=== PATIENT | female | born 1960 | race Caucasian/White ===

== ENCOUNTER 2017-01-20 19:39 | Inpatient (IN) | payer OTHER ==
--- NOTE | ~2017-01-20 | CO ---
Unit #: [id number] #: [id number] Patient: IVAN PACHECO [id number] [address] [address] [id number] I MR#: [id number] NAME: IVAN PACHECO ROOM: 302 Age: 56 Sex: F Admission Date: 01/20/2017 : 1960 Attending Physician: David Chavez M.D. [facility] Consultation Date: 01/21/2017 CONSULTATION REPORT REASON FOR CONSULTATION Severe iron deficiency anemia. HISTORY OF PRESENT ILLNESS Miss Pacheco is a pleasant 56-year-old white female. Patient lives by herself. She is disabled due to "nerves." She has presented with a history of fatigue and respiratory symptoms and upon admission found to have acute influenza. Patient upon admission was found to have a hemoglobin of 5.2 with severely hyperchromic microcytic red cell indices. She apparently came to the urgent care center and subsequently found to have a low hemoglobin. She denied any fever, chills, or rigors, or any nausea, vomiting, diarrhea, or abdominal pain, and there is no history of overt GI bleed. She does have fatigue and upper respiratory tract symptoms. PAST MEDICAL HISTORY 1. Irritable bowel syndrome. 2. Radiation 20 years ago for cervical cancer. PAST SURGICAL HISTORY 1. Tubal ligation. 2. Cholecystectomy. SOCIAL HISTORY She does not smoke or drink alcohol. She used to smoke in the past and quit about 20 years ago. She does not drink alcohol. She lives at home by herself and is disabled. FAMILY HISTORY None of colon or pancreatic cancer or liver disease. ALLERGIES No known drug allergies. MEDICATIONS She does not take any medications at the present times. REVIEW OF SYSTEMS A detailed review of organ systems does not reveal any recent weight loss. No history of fever, chills, or rigors, no history of headaches, seizures, chest pain, or syncope. There is a history of cough and respiratory symptoms. There is a history of fatigue. No history of dysuria, hematuria, or pyuria, no history of hematemesis, melena, or hematochezia, and no history of seizures, skin rash, aphthous ulcers in the mouth, or Unit #: [id number] #: [id number] Patient: IVAN PACHECO reactive arthritis. PHYSICAL EXAMINATION GENERAL: She is alert, oriented, and appears uncomfortable because of fatigue. VITAL SIGNS: Stable with temperature of 98.4, pulse 78 per minute and regular, respiratory rate is 18, and blood pressure is 116/71. She weighs 246 pounds and appears obese. HEENT: She has moderate pallor, there being no icterus, lymphadenopathy, or peripheral edema. CARDIOVASCULAR: Examination revealed normal heart sounds. No murmurs. CHEST: Auscultation over the lungs revealed normal breath sounds and good air entry. ABDOMEN: Soft, obese, and nontender. Liver and spleen are not palpable and bowel sounds are normal. DIAGNOSTIC STUDIES LABORATORY: Hemoglobin of 4.4 on admission, white count is 3.6, platelet count is 217,000, and MCV is 62. Patient has virtually no iron reserves with transferring saturation of 1, ferritin of 3, and iron of 7. Albumin is 3.4. LFTs are normal. BUN and creatinine are also normal. Her potassium on admission was 3. Serologies confirms acute influenza B virus infection. CLINICAL IMPRESSION Patient with acute influenza and severe iron deficiency anemia without any overt gastrointestinal bleed. The differential diagnoses include colorectal neoplasia, peptic ulcer disease, and nonsteroidal antiinflammatory drug usage which patient denies. An upper endoscopy is warranted and will be scheduled shortly. If the later is normal, a colonoscopy will be entertained in the next couple of days. Thank you for asking me to see this pleasant woman. I appreciate the consult. Dictated by... Beka Parks/frederick TD: 01/22/2017 15:12 JOB #: [id number] CONSULTATION REPORT Page 1 of 1 X Arron Cobian MD CONSULTATION REPORT
--- NOTE | ~2017-01-20 | ST ---
Unit #: [id number] #: [id number] Patient: IVAN PACHECO [id number] [address] [address] [id number] I MR#: [id number] NAME: IVAN PACHECO : 1960 SEX: F STUDY DATE/TIME: 01/24/2017 UNIT: C3A PCU ROOM: 302 STUDY DESCRIPTION: Stress test Attending Physician: Joesph Nash M.D. [facility] CARDIOLOGY REPORT EXAM Stress test. REASON FOR EXAM Pre-op clearance for colon surgery. SUMMARY Baseline EKG shows normal sinus rhythm, 60 beats per minute. Per protocol, 0.4 mg of Lexiscan was injected, followed by Cardiolite. During the test the patient did complain of shortness of breath. Denied any complaints of chest pain. There were no ST segment changes suggestive of ischemia. There was an isolated PVC noted during the infusion and some multifocal PVCs noted in the recovery period. The patient's resting blood pressure was 129/76 and pavithra to a maximum blood pressure of 144/87. The test was stopped secondary to protocol completion. IMPRESSION 1. Negative EKG portion of Lexiscan Cardiolite. 2. No ST segment changes suggestive of ischemia. 3. Patient denied any complaints of chest pain; however, did report shortness of breath during the infusion. This resolved in the recovery period. 4. There was an isolated PVC and some multifocal PVCs noted in the recovery period but no sustained arrhythmias. 5. Please correlate with nuclear imaging. 1. Dictated by... Julissa Woo A.P.R.N. for Korin Starkey M.D. LMW/db TD: 01/24/2017 13:20 JOB #: [id number] Unit #: [id number] #: [id number] Patient: IVAN PACHECO CARDIOLOGY REPORT Page 1 of 1 X Julissa Woo APRN CARDIOLOGY REPORT
--- NOTE | ~2017-01-20 | OR ---
Unit #: [id number] #: [id number] Patient: IVAN PACHECO [id number] [id number] [facility]. [place], [place] [address] [id number] I MR#: [id number] NAME: IVAN PACHECO. ROOM: 302 Date of Procedure: 01/23/2017 Admission Date: 01/20/2017 Surgeon: Arron Cobian M.D. : 1960 Attending Physician: Joesph Nash M.D. OPERATIVE REPORT JOB NOTE: CC: DR. DAVID KNOWLES. ATTENDING PHYSICIAN Dr. David Knowles. PRIMARY CARE PHYSICIAN [facility]. PREOPERATIVE DIAGNOSES Severe iron-deficiency anemia. The patient has presented with hemoglobin of 4.4. An upper endoscopy done recently was unremarkable and a colonoscopy to be done today. PROCEDURES PERFORMED Colonoscopy and biopsies, colonoscopy with polypectomy, colonoscopy with submucosal injection, and colonoscopy with ablation. POSTOPERATIVE DIAGNOSES 1. The patient had a severe sigmoid diverticulosis with a tight stricture, which was negotiated very carefully. 2. A proximal ascending colon cancer that was exophytic, friable ulcerated mass about 4 cm above the ileocecal valve, which was nonobstructing and occupying 3/4 of the circumference of colon. The mass was biopsied and the surrounding proximal mucosa and distal mucosa was tattooed using Heidi ink. 3. A large sessile adenoma more than 6 cm in size in the proximal transverse colon. This was removed piecemeal after submucosal injection with methylcellulose and methylene blue. Partial resection was possible using piecemeal polypectomy. The surrounding residual tissue was then ablated using argon plasma coagulation therapy. Excellent hemostasis was achieved. Some of the removed polyp fragments could not be retrieved due to very dysfunctional retrieval net. RECOMMENDATIONS 1. The patient will need right extended hemicolectomy and a surgical consult is in order. 2. We will obtain CEA level, CBC, CMP in a.m. Transfuse one unit of packed cells today. Obtain CT scan of the abdomen and pelvis with oral and IV contrast today. The patient will stay on clear liquid diet. We will also strain all stool samples for 12 hours for polyp tissues or pieces, which will be sent to the path for histopathology. In view of the fact that the patient has proximal transverse colon largest lesion, it Unit #: [id number] #: [id number] Patient: IVAN PACHECO will be preferable to do an extended right hemicolectomy. SEDATION USED MAC. DESCRIPTION OF PROCEDURE Following detailed explanation of potential risks and complications of a colonoscopy, namely perforation, bleeding, and complication related to sedation, the patient was brought to GI lab and laid in the left lateral decubitus position. A digital rectal examination was performed, which was normal. Lubricated tip of the Olympus video colonoscope was inserted through the anus and advanced under direct vision. The scope was advanced past rectosigmoid into descending colon. The patient had tight sigmoid diverticular stricture, which was navigated very carefully and required a lot of maneuverability. Once the scope was advanced in the descending colon, insertion was easier. The scope tip was then navigated all the way up to cecum with visualization of the ileocecal valve and the appendiceal orifice. Preparation was excellent with good visualization and photodocumentation was obtained. Successive segments of the colonic mucosa were examined upon withdrawal. A large proximal ascending colon mass was seen about 4 cm above the ileocecal valve, which was nonobstructing occupying 3/4 of the circumference of the colon. It had a classic appearance of cancer with the exophytic ulcerated mass. Extensive biopsies were obtained from the mass. The mucosa immediate proximal and distally was then tattooed using Heidi ink and a sclerotherapy needle. In addition, a large sessile adenoma about 6 cm in size was removed piecemeal from the proximal transverse colon. Partial resection was possible. The polyp was raised by injecting with methylcellulose and methylene blue, and the residual polyp tissue was then ablated with argon plasma coagulation therapy. Some of the polyp fragments could not be collected after resection due to a dysfunctional equipment of Leahy snare. The scope was then withdrawn and the patient returned to the recovery area. She tolerated the procedure without any postprocedure complications. Dictated by... Beka Parks TD: 01/24/2017 00:14 JOB #: [id number] CC: [facility] OPERATIVE REPORT Page 1 of 1 X Arron Cobian MD PROCEDURE OPERATIVE NOTE
--- NOTE | ~2017-01-20 | CO ---
Unit #: [id number] #: [id number] Patient: IVAN PACHECO [id number] [address] [place], [place] [address] [id number] I MR#: [id number] NAME: IVAN PACHECO. ROOM: 302 Age: 56 Sex: F Admission Date: 01/20/2017 : 1960 Attending Physician: Joesph Nash M.D. Primary Care Physician: [facility] Consultation Date: 01/24/2017 CONSULTATION REPORT BRIEF SUMMARY The patient is a 56-year-old white female, who was admitted through the emergency room with severe anemia. She had been feeling very weak and tired lately and just generally ill and was seen in the clinic and her hemoglobin was down the range of 4.5 g. She denies any rectal bleeding or melena, but has had some weight loss over the past 3 months, according to her maybe 15 pounds to 20 pounds. She was admitted and transfused up and worked up by Dr. Cobian and had a colonoscopy yesterday that revealed 3 separate abnormalities, one was tight stricture probably chronic diverticulitis of the sigmoid colon, number 2 was a large polyp greater than 5 cm in the proximal transverse colon and cancer of the right colon just distal to the ileocecal valve. Biopsies were taken from these areas. The polyp apparently was taken out of the transverse colon piecemeal and the area tattooed as well as the right colon lesion. The patient denies any past history for colon cancer. She also denies any family history of colon cancer. PAST MEDICAL HISTORY The patient has had a known history for cervical cancer with radiation approximately 20 years ago. She has also had a known history for irritable bowel syndrome. She has had a previous cholecystectomy and tubal ligation surgery stauffer. SOCIAL HISTORY The patient has been a smoker in the past, but quit apparently 20 years ago. FAMILY HISTORY Remarkable and the fact there is no history for colon cancer. MEDICATIONS She states that she takes no home medications. ALLERGIES No allergies. TRANSFUSIONS None in the past. IMMUNIZATIONS Up-to-date. REVIEW OF SYSTEMS Twelve system review has been performed, which is not remarkable except Unit #: [id number] #: [id number] Patient: PACHECO,IVAN L for that noted in the present illness. PHYSICAL EXAMINATION VITAL SIGNS: The patient is afebrile. Vital signs are normal. HEENT: Not remarkable. NECK: Supple. CHEST: There is equal bilateral expansion with bilateral equal breath sounds. LUNGS: Clear bilaterally. HEART: Regular rhythm without murmurs or gallops. There is no evidence of cardiomegaly clinically. ABDOMEN: Soft, nontender, nondistended without mass or organomegaly. There is no evidence of any ascites or hernias. There is no guarding or rebound. Active bowel sounds are present. EXTREMITIES: Full range of motion without limitation. There is no evidence of peripheral edema. BACK: There is no CVA tenderness. NEUROLOGIC: Grossly intact. DIAGNOSTIC STUDIES LABORATORY RESULTS: Potassium was 3.1 yesterday, morning labs pending. Her current hemoglobin yesterday was 7.7, after being transfused, platelets of 180,000; white blood cell count 4700. This morning's CBC is pending. IMPRESSION The patient has colon cancer of the right colon with a large possibly premalignant polyp of the transverse colon and high-grade stricture of the sigmoid. Also on CT, she was noted to have cardiomegaly and some calcifications of her coronaries indicating cardiac disease, which suggests at this time prior to setting her up for subtotal colectomy. The patient needs cardiac clearance on CT as well. She had a small amount of free air that could possibly be related to her biopsies or the stricture. I feel the patient likely will need a subtotal colectomy. Dictated by... Gwyn Ochoa Jr., M.D. EYAL/aixa TD: 01/24/2017 07:23 JOB #: [id number] CONSULTATION REPORT Page 1 of 1 X Gwyn Ochoa MD X CONSULTATION REPORT
--- NOTE | ~2017-01-20 | XA166 ---
[facility] A Service of [facility] RADIOLOGY TEXT RESULTS PATIENT: IVAN PACHECO LOCATION: C3A - : 56 UNIT #: [id number] AGE: [address]: Joesph Nash MD SEX: F ORDER DR: [id number] [facility] [address] [facility] [place], [place] [address] [id number] I MR#: [id number] Acc #: [id number] NAME: IVAN PACHECO. : 1960 SEX: F STUDY DATE/TIME: 01/24/2017 11:19 UNIT: C3A U ROOM: [facility] STUDY DESCRIPTION: XA PICC Line Placement WO Port Attending Physician: Joesph Nash M.D. Ordering Physician: Joesph Nash M.D. Primary Care Physician: [facility] IMAGING REPORT This report is preliminary unless electronic signature is present EXAM Left-sided PICC line placement under ultrasound and fluoroscopy. HISTORY No venous access. PRE-PROCEDURE The procedure was explained to the patient and/or patient underwriting service representative including risks, benefits, potential complications and potential for alternative forms of treatment. Informed consent was obtained, and prior to initiating the procedure a formal timeout procedure was performed. PROCEDURE Using full standard sterile barrier technique, including caps, gowns, gloves, masks, as well as sterile skin preparation and standard sterile draping, the left arm was prepped and draped in the usual fashion, and real-time sterile ultrasound guidance was used to localize an arm vein and to confirm vessel patency. A hard copy ultrasound image was recorded. After local anesthesia with 1% Xylocaine, the basilic vein was punctured using real-time sterile ultrasound guidance, and an 0.018 guidewire was advanced into the superior vena cava, using fluoroscopic guidance. A 5-Ecuadorean dual-lumen PICC was then measured to 45 cm and deployed with the tip positioned in the cavoatrial junction. The position of the line was documented with a radiographic image. The line was secured in place with an adhesive dressing and an antibiotic patch was applied. Total fluoro time was 0.4 minutes. IMPRESSION Successful placement of a 5-Ecuadorean dual-lumen PowerPICC via the left arm under ultrasound and fluoroscopic guidance. The tip of the PICC is in good position in the cavoatrial junction. [facility] A Service of [facility] RADIOLOGY TEXT RESULTS PATIENT: IVAN PACHECO LOCATION: A 302-01 : 56 UNIT #: [id number] AGE: [address]: Joesph Nash MD SEX: F ORDER DR: Dictated by... Nav Miles M.D. THIS IS AN ELECTRONICALLY VERIFIED REPORT Nav Miles M.D. at 01/26/2017 2:20 PM TAMMY/jenae TD: 01/25/2017 00:05 JOB #: [id number] MEDICAL IMAGING REPORT Page 1 of 1 COPY
--- NOTE | ~2017-01-20 | OR ---
Unit #: [id number] #: [id number] Patient: IVAN PACHECO [id number] [address] [address] [id number] I MR#: [id number] NAME: IVAN PACHECO. ROOM: 302 Date of Procedure: 01/21/2017 Admission Date: 01/20/2017 Surgeon: Arron Cobian M.D. : 1960 Attending Physician: Joesph Nash M.D. Primary Care Physician: [facility] OPERATIVE REPORT PRIMARY CARE PHYSICIAN [facility]. PREOPERATIVE DIAGNOSIS The patient presented with severe iron deficiency anemia with hemoglobin of 5 and virtually no iron reserves. PROCEDURE PERFORMED Upper gastrointestinal endoscopy. POSTOPERATIVE DIAGNOSIS Incidental distal esophageal nonobstructing wide open Schatzki ring, otherwise examination normal up to third part of duodenum. RECOMMENDATIONS The patient will be given intravenous iron infusion for the next couple of days. Also we will schedule colonoscopy for Monday. In the meantime, she is getting packed cell transfusions. SEDATION USED Procedural sedation. DESCRIPTION OF PROCEDURE Following detailed explanation of the potential risks and complications of an upper endoscopy, namely perforation, bleeding, complication related to sedation, the patient was brought to GI lab and laid in the left lateral decubitus position. Lubricated tip of the Olympus video upper endoscope was passed through the bite block into the proximal esophagus under direct vision. The entire esophageal mucosa was examined and the patient was noted to have benign distal esophageal mucosal ring. This was wide open and nonobstructing. The scope was then advanced into the gastric cavity and the latter was insufflated. Mucosa of the fundus, body, and antrum examined and appeared unremarkable. Pylorus was intubated with visualization of normal duodenal bulb and second and third part of the duodenum. Upon withdrawal and retroflexion, incisura, cardia, and greater curve examined and no additional findings noted. The scope was then withdrawn in the distal esophagus. The entire esophageal mucosa was examined all the way up to pharynx. No additional findings noted. The patient tolerated the procedure without any postprocedure complications. Dictated by... Unit #: [id number] #: [id number] Patient: IVAN PACHECO Beka Parks/aixa TD: 01/22/2017 01:16 JOB #: [id number] CC: [facility] David Chavez M.D. OPERATIVE REPORT Page 1 of 1 X Arron Cobian MD PROCEDURE OPERATIVE NOTE
--- NOTE | ~2017-01-20 | HP ---
Unit #: [id number] #: [id number] Patient: IVAN PACHECO [id number] [address] [place], [place] [address] [id number] I MR#: [id number] NAME: IVAN PACHECO. ROOM: 302 Age: 56 Sex: F Admission Date: 01/20/2017 : 1960 Attending Physician: Diana Blunt M.D. [facility] HISTORY AND PHYSICAL CHIEF COMPLAINT Low blood count. Hemoglobin 5.2. Fatigue. HISTORY OF PRESENT ILLNESS This is a 56-year-old female who has a past medical history significant for history of cervical cancer, status post radiation 20 years ago, irritable bowel syndrome, not seeing any primary doctor for a year. She said she went to the Urgent Care today, having some cough, fatigue, dyspnea for the last couple of weeks. They did blood work and found her hemoglobin to be 5.2 and she was called to come to the emergency room. She denies chest pain. She denies nausea and vomiting, diarrhea, blood in the stool, abdominal pain. She denies fever, chills. She denies any vaginal bleeding. Denies any other complaint. PAST MEDICAL HISTORY 1. History of cervical cancer, status post radiation 20 years ago. 2. History of irritable bowel syndrome. PAST SURGICAL HISTORY 1. Cholecystectomy. 2. Tubal ligation. SOCIAL HISTORY She smoked a half pack daily for 10 years, but she quit 20 years ago. She denies alcohol. She denies any other illicit drug use. FAMILY HISTORY She denies any history of colon cancer, any other significant pertinent history to the case. ALLERGIES No known drug allergies. HOME MEDICATIONS She does not take any medication at home. REVIEW OF SYSTEMS All review of systems was negative except for that in history of present illness. PHYSICAL EXAMINATION GENERAL: Middle-aged female lying in the bed comfortably, currently not in any distress. She is alert, awake, oriented times three. VITALS: Temperature 100.1, heart rate 105, respiratory rate 18, blood Unit #: [id number] #: [id number] Patient: IVAN PACHECO pressure 146/56. HEENT: Pupils equal and reactive to light and accommodation. Head is normocephalic, atraumatic. Conjunctivae pale. No icterus. Head is normal. NECK: Supple. No jugular venous distension. No thyromegaly. LUNGS: Clear to auscultation. No rhonchi. No wheezing. HEART: S1 and S2. Regular rate and rhythm. No murmur. No gallop. ABDOMEN: Soft, nontender and nondistended. Bowel sounds positive. No guarding. No rigidity. SKIN: No rash. Warm and dry. EXTREMITIES: Inspection normal. No cyanosis, clubbing or edema. NEUROLOGIC: No focal neurologic deficits. She is alert and oriented times four. Cranial nerves II through XII intact. Power 5/5 both side. PSYCHIATRIC: Normal mood and affect. DIAGNOSTIC STUDIES IMAGING: Chest x-ray normal. LABORATORY: Sodium 134, potassium 3, chloride 102, glucose 167, BUN 12, creatinine 1. White blood cell count 3.6, RBC 2.87, hemoglobin 4.4, hematocrit 16.1, platelets 250. (1) drops present in the peripheral smear. INR 1.1. ASSESSMENT/PLAN 1. Severe symptomatic anemia. Will admit the patient. Will type and cross and transfuse two units. Ask GI and hematology to evaluate. Iron studies already ordered in the emergency room, which are being sent. Will add B12 and folic acid level in the morning. 2. Hypokalemia. Replace. Check magnesium level. 3. Fever. Low-grade fever. Chest x-ray negative. I will get urine for urinalysis. 4. Irritable bowel syndrome. 5. History of cervical, status post radiation 20 years ago. 6. DVT prophylaxis. Will place the patient on SCDs. Dictated by Beka Hutchinson TD: 01/21/2017 06:13 JOB #: [id number] HISTORY AND PHYSICAL Page 1 of 1 X X HISTORY AND PHYSICAL
--- NOTE | ~2017-01-20 | TH ---
Unit #: [id number] #: [id number] Patient: IVAN PACHECO [id number] [address] [address] [id number] I MR#: [id number] NAME: IVAN PACHECO. : 1960 SEX: F STUDY DATE/TIME: 01/25/2017 UNIT: C3A PCU ROOM: 302 STUDY DESCRIPTION: Lexiscan stress test - Nuclear Attending Physician: Joesph Nash M.D. [facility] CARDIOLOGY REPORT PROCEDURE PERFORMED Lexiscan Cardiolite stress test - Nuclear portion. PROCEDURE Using technetium 99m-labeled Cardiolite, rest and stress SPECT images were obtained. Multiple SPECT images were obtained in various views, including horizontal and vertical long axis and short axis views of the left ventricle. Images were obtained by gated SPECT method. The patient was administered 29.9 mCi of Cardiolite after Lexiscan infusion was completed. The stress images show a small area of mildly to moderately decreased tracer uptake activity involving the anteroapical wall. The rest images also show a small area of mildly decreased tracer uptake activity anteroapically. Comparing the rest and stress images, there is a small area of predominantly fixed defect seen anteroapically, most likely consistent with soft tissue artifact. The left ventricular ejection fraction is calculated to be 66%. There is no focal wall motion abnormality seen. There is no obvious stress-induced ischemia noted. CONCLUSION 1. No obvious stress-induced ischemia noted. 2. There is a small area of predominantly fixed defect seen anteroapically, most likely consistent with soft tissue artifact. 3. The left ventricular ejection fraction is calculated to be 66%. 4. There is no focal wall motion abnormality seen. 5. Technically limited study due to the patient's body habitus. Clinical correlation is requested. Dictated by.Beka Lama TD: 01/25/2017 08:56 JOB #: [id number] Unit #: [id number] #: [id number] Patient: IVAN PACHECO CARDIOLOGY REPORT Page 1 of 1 X Korin Starkey MD <ELECTRONICALLY SIGNED> 05/06/17 [facility] CARDIOLOGY REPORT
--- NOTE | ~2017-01-20 | HP ---
Unit #: [id number] #: [id number] Patient: IVAN PACHECO [id number] [address] [address] [id number] I MR#: [id number] NAME: IVAN PACHECO. ROOM: 302 Age: 56 Sex: F Admission Date: 01/20/2017 : 1960 Attending Physician: Joesph Nash M.D. Primary Care Physician: [facility]. HISTORY AND PHYSICAL REASON FOR EVALUATION Anemia. HISTORY OF PRESENT ILLNESS The patient is a 56-year-old lady who came in with very symptomatic microcytic anemia. Hemoglobin was 5.2. She is currently being transfused. She states that she knew that she was anemic, but that was 40 years ago when she had her periods and . She was told that she was anemic. Subsequently she has never had any anemia come up until now. She does have a history of cervical cancer, status post radiation therapy, but that is also about 20 years ago. There are no records available. The only other medical problem is irritable bowel syndrome. SOCIAL HISTORY Smoked for about 10 years. She states she quit 20 years ago. No alcohol usage. FAMILY HISTORY Negative for any cluster of cancers or colonic abnormalities or anemias. ALLERGIES No known drug allergies. HOME MEDICATIONS None. REVIEW OF SYSTEMS She states that she has been healthy all of her life. Eight or 10 systems were within normal limits. PHYSICAL EXAMINATION GENERAL: Moderately pale, central obesity. LYMPH: No palpable nodes. LUNGS: Clear. ABDOMEN: No organomegaly. PELVIC: Not done. DIAGNOSTIC STUDIES LABORATORY: Glucose 167, BUN 12, creatinine 1, sodium 134, potassium 3.7, chloride 102, CO2 21, calcium 8, hemoglobin upon admission was 4.4, hematocrit 16.1, MCV 55.9, white blood cell count 3600, platelets 250,000. B12 194, folate 18.7, iron 7, TIBC 521, saturation 1, ferritin 3. ASSESSMENT Unit #: [id number] #: [id number] Patient: IVAN PACHECO This 56-year-old lady with no obvious blood loss has a significant microcytic anemia with a very low hemoglobin and low B12. PLAN Initially we will go ahead and replenish the iron. Upper and lower endoscopies. Follow up to make sure that she recuperates. She may require further iron therapy. If the microcytic RBCs persist, we may need to do a hemoglobin electrophoresis so that we do not miss beta thalassemia minor, which is unlikely but still needs to be ruled out if microcytic RBCs persist. Dictated by Micah Freeman M.D. SPS/gz TD: 01/22/2017 12:17 JOB #: [id number] HISTORY AND PHYSICAL Page 1 of 1 X Micah Freeman MD X HISTORY AND PHYSICAL
--- NOTE | ~2017-01-20 | EKG ---
PATIENT: IVAN PACHECO UNIT #: [id number] Ventricular Rate: 57 BPM Atrial Rate: 57 BPM P-R Interval: 148 ms QRS Duration: 94 ms Q-T Interval: 484 ms QTC Calculation(Bezet): 471 ms P [place]: 45 degrees Calculated R [place]: 6 degrees Calculated T [place]: 0 degrees Diagnosis Line: Sinus bradycardia Diagnosis Line: Possible Inferior infarct , age undetermined Diagnosis Line: Abnormal ECG Diagnosis Line: No previous ECGs available Diagnosis Line: Confirmed by APRIL SIFUENTES MD ([id number]) on 01/24/2017 Diagnosis Line: 10:21:01 PM INTERPRETING MD: BEAR CARTER
--- NOTE | ~2017-01-20 | CT2 ---
[facility] A Service of [facility] RADIOLOGY TEXT RESULTS PATIENT: IVAN PACHECO LOCATION: [facility] : 56 UNIT #: [id number] AGE: [address]: Joesph Nash MD SEX: F ORDER DR: [id number] [place] [id number] [facility]. [place], [place] [address] [id number] I MR#: [id number] Acc #: [id number] NAME: IVAN PACHECO : 1960 SEX: F STUDY DATE/TIME: 01/23/2017 20:24 UNIT: [address] ROOM: [facility] STUDY DESCRIPTION: CT Abd and Pelv W Cont Attending Physician: Joesph Nash M.D. Ordering Physician: Arron Cobian M.D. Primary Care Physician: [facility] IMAGING REPORT This report is preliminary unless electronic signature is present EXAM CT abdomen and pelvis with contrast. HISTORY Anemia, sent for evaluation of low hemoglobin, complains of lower abdominal pain. TECHNIQUE Axial images performed through the abdomen and pelvis following IV contrast. Multiplanar reconstructed images reviewed at a workstation. This CT exam was performed with one or more of the following radiation dose reduction techniques: automatic exposure control, adjustment of mA and/or kV according to patient size, and iterative reconstruction. FINDINGS ABDOMEN: Lung bases unremarkable except for right lower lobe granuloma. Cardiomegaly. The liver suggests fatty infiltration. There is splenomegaly. Gallbladder surgically absent. Pancreas, kidneys and adrenal glands are unremarkable. There is a small amount of free air overlying the anterior right liver and along the hemidiaphragm. Etiology unclear. The stomach demonstrates some food debris. The small bowel is unremarkable. There are scattered colonic diverticular changes but no evidence of acute diverticulitis. Retroperitoneum unremarkable. PELVIS: The uterus is surgically absent. Bladder is contracted. There is a trace amount of free fluid in the pelvis. Osseous structures and soft tissues unremarkable. IMPRESSION [facility] A Service of [facility] RADIOLOGY TEXT RESULTS PATIENT: IVAN PACHECO LOCATION: [facility] : 56 UNIT #: [id number] AGE: [address]: Joesph Nash MD SEX: F ORDER DR: 1. There is a very small amount of free intraperitoneal air best seen overlying the anterior aspect of the liver and along the dome of the liver. This appears to represent a new finding when compared to the patient's recent chest CT of 01/20/2017. Exact etiology unclear. 2. There are a few scattered sigmoid diverticula as well as a trace amount of free fluid the pelvis, nonspecific. Changes could reflect very early sigmoid diverticulitis but is not particularly convincing. 3. Additional history was provided that the patient had a recent colonoscopy today. The presence of small amount of free intraperitoneal air would be concerning for a small perforation. These findings were called to the nurse on the floor and they are going to notify Dr. Cobian of the results of this study. Dictated by... Mona Ta M.D. THIS IS AN ELECTRONICALLY VERIFIED REPORT Mona Ta M.D. at 01/24/2017 11:00 PM ANDRES/jenae TD: 01/24/2017 00:25 JOB #: [id number] MEDICAL IMAGING REPORT Page 1 of 1 COPY
--- NOTE | ~2017-01-20 | US140 ---
[facility] A Service of [facility] RADIOLOGY TEXT RESULTS PATIENT: IVAN PACHECO LOCATION: [facility] 302- : 56 UNIT #: [id number] AGE: [address]: Joesph Nash MD SEX: F ORDER DR: [id number] [facility] [address] [facility]. [place], [place] [address] [id number] I MR#: [id number] Acc #: [id number] NAME: IVAN PACHECO : 1960 SEX: F STUDY DATE/TIME: 01/24/2017 14:10 UNIT: [address] ROOM: [facility] STUDY DESCRIPTION: US UE Veins Unilat or Ltd Stdy Attending Physician: Joesph Nash M.D. Ordering Physician: Joesph Nash M.D. Primary Care [facility] MED[facility] IMAGING REPORT This report is preliminary unless electronic signature is present EXAM Right upper extremity venous Doppler, 01/24/2017 REASON FOR EXAM Upper extremity swelling. FINDINGS The right internal jugular vein, subclavian vein, axillary vein, and brachial vein is widely patent and compressible. There is phasic appearing flow with respiration and augmentation. The right cephalic vein appears patent in the proximal arm but appears to be thrombosed and noncompressible in the mid arm. The basilic vein appears widely patent and compressible throughout. At the antecubital fossa, there is a structure either consistent with a venous thrombosis or a hematoma measuring 2.6 x 1.3 cm in diameter. IMPRESSION No evidence of right upper extremity deep vein thrombosis but positive superficial venous thrombosis of the mid cephalic vein. Dictated by... Barby Henderson M.D. THIS IS AN ELECTRONICALLY VERIFIED REPORT Barby Henderson M.D. at 01/25/2017 3:49 PM FPN/psc TD: 01/25/2017 04:03 JOB #: [id number] MEDICAL IMAGING REPORT [facility] A Service of [facility] RADIOLOGY TEXT RESULTS PATIENT: IVAN PACHECO LOCATION: [facility] 302-01 : 56 UNIT #: [id number] AGE: [address]: Joesph Nash MD SEX: F ORDER DR: Page 1 of 1 COPY
--- NOTE | ~2017-01-20 | BMI ---
[facility] Nutrition Therapy DATE: 01/21/17 Patient: IVAN PACHECO Physician: GORGE Address: [address] [place] [address] Room/Bed: [address] [place] [address], Zip: [place] [address] Admit Date: 01/20/17 Date of : 56 Height: 5 5.5 Weight: 246 111.8 HIGH BMI NOTE: DX: 56 Y.O. FEMALE ADMITTED FOR ANEMIA ANTHROPOMETRICS: 5'5.5", WT: 246# (112 KG), BMI: 40.3 DIET: NPO INTERVENTION: 1. NPO RECOMMENDATIONS: 1. ONCE MEDICALLY FEASIBLE, ADVANCE DIET INDICATED TO CC+HH TO PROMOTE GRADUAL WEIGHT LOSS TOWARDS HEALTHY BMI (19.0-25.0) OR +/-10%IBW RD WILL F/U PER PROTOCOL Respectfully, PRIMO LONG MS, RD, LD Food and Nutritional Services [facility] cc: client file
--- NOTE | ~2017-01-20 | CR72 ---
[facility] A Service of [facility] RADIOLOGY TEXT RESULTS PATIENT: IVAN PACHECO LOCATION: [facility] 302- : 56 UNIT #: [id number] AGE: [address]: Diana Blunt MD SEX: F ORDER DR: [id number] [facility] [address] [place], [place] [address] [id number] I MR#: [id number] Acc #: [id number] NAME: IVAN PACHECO : 1960 SEX: F STUDY DATE/TIME: 01/20/2017 19:50 UNIT: [address] ROOM: [facility] STUDY DESCRIPTION: CR Chest Single View Portable Attending Physician: David Chavez M.D. Ordering Physician: Musa Hernandez M.D. [facility] MED[facility] IMAGING REPORT This report is preliminary unless electronic signature is present EXAM Portable chest HISTORY Cough and congestion and fever for 2 weeks. FINDINGS Borderline cardiac enlargement. Pulmonary vascularity is normal. Small calcified right hilar nodes and small calcified granulomas in the right midlung. No infiltrates or effusions. IMPRESSION No acute findings. Borderline cardiac enlargement. Dictated by... Zeyad Solares M.D. THIS IS AN ELECTRONICALLY VERIFIED REPORT Zeyad Solares M.D. at 01/21/2017 11:19 PM DFL/rosemary TD: 01/21/2017 04:03 JOB #: [id number] MEDICAL IMAGING REPORT Page 1 of 1 COPY
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
--- NOTE | ~2017-01-20 | CT57 ---
[facility] A Service of [facility] RADIOLOGY TEXT RESULTS PATIENT: IVAN PACHECO LOCATION: [facility] : 56 UNIT #: [id number] AGE: [address]: Joesph Nash MD SEX: F ORDER DR: [id number] [facility] [address] [facility]. [place], [place] [address] [id number] I MR#: [id number] Acc #: [id number] NAME: IVAN PACHECO : 1960 SEX: F STUDY DATE/TIME: 01/20/2017 21:34 UNIT: [address] ROOM: [facility] STUDY DESCRIPTION: CT Chest Wo Cont Attending Physician: Diana Blunt M.D. Ordering Physician: Axel Haywood M.D. Primary Care Physician: [facility] MEDICAL IMAGING REPORT This report is preliminary unless electronic signature is present EXAM CT of the chest without contrast. INDICATIONS Fever, low hemoglobin. Cough, congestion for [address] of the chest was performed without contrast. Coronal and sagittal reformatted images were obtained. This CT exam was performed with one or more of the following radiation dose reduction techniques: automatic exposure control, adjustment of mA and/or kV according to patient size, and iterative reconstruction. COMPARISON No comparisons. FINDINGS There is no lymphadenopathy or pleural effusion. Calcified mediastinal and hilar lymph nodes. Coronary artery calcifications. There are calcified granulomas within the lungs. There is minimal dependent atelectasis or scarring. No acute infiltrate. No suspicious pulmonary nodule. Limited imaging of the upper abdomen demonstrates a cholecystectomy. Splenomegaly. Bone windows are unremarkable. IMPRESSION No acute findings in the chest. There is no airspace infiltrate or suspicious pulmonary nodule. There is no lymphadenopathy. There are scattered granulomatous calcifications. Dictated by... Solo Ta M.D. THIS IS AN ELECTRONICALLY VERIFIED REPORT [facility] A Service of [facility] RADIOLOGY TEXT RESULTS PATIENT: IVAN PACHECO LOCATION: [facility] : 56 UNIT #: [id number] AGE: [address]: Joesph Nash MD SEX: F ORDER DR: Solo Ta M.D. at 01/23/2017 8:02 AM ALECIA/katie TD: 01/21/2017 06:28 JOB #: [id number] MEDICAL IMAGING REPORT Page 1 of 1 COPY
--- NOTE | ~2017-01-20 | OR ---
Unit #: [id number] #: [id number] Patient: IVAN PACHECO [id number] [address] [place], [place] [address] [id number] I MR#: [id number] NAME: IVAN PACHECO. ROOM: 302 Date of Procedure: 01/25/2017 Admission Date: 01/20/2017 Surgeon: Harry Mason M.D. : 1960 Attending Physician: Joesph Nash M.D. Primary Care Physician: [facility] OPERATIVE REPORT PREOPERATIVE DIAGNOSES Ascending colon malignancy and proximal to mid transverse colon polyp. POSTOPERATIVE DIAGNOSES Ascending colon malignancy and proximal to mid transverse colon polyp. PROCEDURES PERFORMED Exploratory laparotomy and extended right hemicolectomy. CONCERT SINGER Stanton Conti M.D. ANESTHESIA General endotracheal anesthesia. ESTIMATED BLOOD LOSS 100 mL. INDICATIONS FOR PROCEDURE A 56-year-old female underwent endoscopic evaluation for anemia by Gastroenterology. She was found to have a mass in the ascending colon consistent with malignancy. In the proximal to mid transverse colon, there was a second large polyp that was taken out piecemeal, but the sanitary landfill supervisor felt that there was residual polyp left and could not completely rule out cell malignancy and suggested extended resection to include the polyp. Of note, in the sigmoid colon, he dictated that there was a strictured area, but on personal communication, I was asking him about that to see if it needed to be resected and he felt was more due to externally adhesions where she had an area of diverticular disease and felt that that the colon was more in a very tight turn that made passage through that area difficult more than a true cicatrix. He said that he did not feel the area needed to be resected, but if there are areas of adhesion in this area, mobilizing the adhesions may be of value. DESCRIPTION OF PROCEDURE The patient was transported from her hospital room to the operating room, and after induction of general endotracheal anesthesia, a Mckenna catheter was placed. SCDs were placed. She was placed in lithotomy position using Og stirrups. Abdominal wall hair was clipped and she was prepped and draped in usual sterile fashion. Prior to being prepped and draped, a rectal prep with Betadine was performed. Midline incision made, dissected down through the soft tissue, entered the peritoneal cavity through the Unit #: [id number] #: [id number] Patient: IVAN PACHECO linea albkristina. Once the peritoneum had been entered, the colon was explored and evaluated. The mass just above the ileocecal valve was palpable and in the proximal transverse colon, there was an area that had been tattooed consistent with where the polypectomy had occurred. We then examined the rest of the colon including mobilization of the splenic flexure to ensure there were no other lesions. In the sigmoid colon, there was redundancy of the sigmoid colon with adhesions and a tight hairpin loop. The sigmoid colon adhesions were taken down and the colon was mobilized along the line of Toldt and pulled up in a more direct lie of the colon along the left colic gutter. The colon was tacked up to prevent the hairpin turning. I palpated throughout the entire colon. I did not feel any area of narrowing stricture or mass. After the ascending colon and terminal ileum were mobilized and brought up into the wound, the mid transverse colon proximal to the middle colic artery was divided using a JOSH stapler and the terminal ileum was divided using a JOSH stapler. I sequentially clamped, divided, and ligated the mesentery removing the right colon in an extended fashion. We ensured there was hemostasis and then the antimesenteric border of the terminal ileum was sewn to the anterior tenia of the transverse colon. The area was packed off. Colotomy and enterotomy were made and the full length of a 75 mm JOSH stapler was used to create a functional end-to-end and [id number] stapled anastomosis. There was good hemostasis. The staple lines were oversewn with 3-0 silk suture and the mesenteric defect was closed with 3-0 silk suture. At this point, we copiously irrigated and explored the entire abdominal cavity. There was good hemostasis and sponge counts were correct. The liver did not have any evidence of metastatic disease. I then thoroughly irrigated the peritoneal cavity and suctioned the irrigant out. The bowel was placed in the anatomic position. Omentum was pulled over the bowel and the midline fascia was closed using #1 looped PDS suture starting one inferiorly and one superiorly and securing them together in the center. The soft tissue was irrigated with saline followed by Betadine and the skin was closed with sterile skin jaun. Sponges and needle counts were correct x3. The patient tolerated the procedure well and transported to recovery in stable condition. Findings and postoperative instructions were discussed with the patient once her anesthetic had worn off as there was no family available at the end of the case to discuss the surgery with. Dictated by... Beka Mi/aixa TD: 01/25/2017 23:42 JOB #: [id number] OPERATIVE REPORT Page 1 of 1 X Harry Mason MD PROCEDURE OPERATIVE NOTE
--- NOTE | ~2017-01-20 | DS ---
Unit #: [id number] #: [id number] Patient: IVAN PACHECO [id number] [address] [facility]. [place], [place] [address] [id number] I MR#: [id number] NAME: IVAN PACHECO. ROOM: 302 Age: 56 Sex: F Admission Date: 01/20/2017 : 1960 Discharge Date: 01/29/2017 Attending Physician: Joesph Nash M.D. Primary Care Physician: [facility], DISCHARGE SUMMARY REASON FOR ADMISSION Anemia. HISTORY OF PRESENT ILLNESS/HOSPITAL COURSE The patient is a 56-year-old very pleasant female who presented secondary to referral from her primary care physician. She was noted to have a hemoglobin of 5.2. She had been complaining of increased fatigue, as well as dyspnea on exertion, for the past several weeks. When she was evaluated in the emergency room, it was noted her hemoglobin was 4.4. She appropriately received blood transfusions through initial part of hospital course. Consultation was subsequently placed to Dr. Cobian of the gastroenterology service. The patient underwent upper GI endoscopy, which did reveal incidental distal esophageal nonobstructing Schatzki ring. There was gastritis noted. The patient had also complained of some mild cough and congestion, as well, with her dyspnea. We became concerned for possible underlying pneumonia and/or acute infiltrate. The patient ultimately underwent CT of the chest, noncontrast, on January 20, which did not show any acute process. On January 23, 2017, the patient underwent CT abdomen and pelvis, which did reveal small amount of free intraperitoneal air present, but no other acute process was noted. Eventually, Dr. Cobian performed a colonoscopy, which did reveal a large mass present within the colon concerning for underlying colorectal carcinoma. Consultation was subsequently placed to [facility]. Eventually, on January 25, 2017, the patient underwent exploratory laparotomy, as well as extended right hemicolectomy, performed by Dr. Mason and Dr. Conti. The patient underwent routine postoperative care and, otherwise, did well. Preoperatively, the patient underwent Lexiscan Cardiolite stress test. Dr. Starkey saw and evaluated the patient. She was cleared from a cardiac standpoint, and stress test was, otherwise, unremarkable. Ejection fraction was noted to be 60%. It is noted that the patient is quite anxious; therefore, she was initiated on Xanax while she was here. She also appears to have a benign essential tremor. She was initiated on Inderal, as well as Mirapex, and she will be given prescriptions at time of discharge. Unit #: [id number] #: [id number] Patient: IVAN PACHECO At time of discharge her hemoglobin currently stands at 8.9. Her BMP is, otherwise, unremarkable. She will have followup with her PCP in 3-5 days. Follow with [facility] in 5-7 days, and she will follow with Dr. Freeman of hematology/oncology service in 10-14 days. Final pathology report did reveal high-grade dysplasia with intramucosal carcinoma, as well as fragments of adenocarcinoma. Outpatient evaluation and/or workup will be continued by Dr. Freeman. FINAL DISCHARGE DIAGNOSES 1. 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 2. Anemia on admission. 3. Influenza A positive on admission, treated with Tamiflu. 4. Acute streptococcal pharyngitis on admission, treated. 5. Generalized anxiety disorder. 6. Benign essential tremor. 7. Obesity. 8. Vitamin B12 deficiency with outpatient IM B12 injections to be set up. 9. Noncompliance with followup in the past. DISCHARGE MEDICATIONS 1. Mirapex 1 mg p.o. q.h.s. 2. Xanax 0.5 mg p.o. q.6 p.r.n.(#20 prescription given). 3. Inderal LA 60 mg p.o. daily. 4. Exeter 7.5/325 mg 1-2 tablets p.o. q.6 p.r.n.(#30 prescription given). 5. Protonix 40 mg p.o. daily. 6. Ferrous gluconate 324 mg p.o. daily. Dictated by... Beka Espitia/kaz TD: 01/31/2017 07:29 JOB #: [id number] DISCHARGE SUMMARY Page 1 of 1 X Joesph Nash MD X DISCHARGE SUMMARY
[2017-01-20 19:04] LABS: BASOPHIL% 0.7 % (0-2.5); EOSINOPHIL% 0.2 % (0.0-7.0); HEMATOCRIT 16.1 % (35.0-45.0); LYMPHOCYTE# 0.6 X10e3 (1.0-3.5); LYMPHOCYTE% 15.9 % (17.0-45.0); MEAN CELL VOLUME 55.9 FL (83-96); MEAN CORPUSCULAR HEMOGLOBIN 15.2 PG (28-34); MEAN CORPUSCULAR HGB CONC 27.2 g/dL (30-36); MEAN PLATELET VOLUME 8.8 FL (6.5-11.5); MONOCYTE# 0.3 X10e3 (0-1.0); MONOCYTE% 8.4 % (3.0-12.0); NEUTROPHIL# 2.7 X10e3 (1.5-7.1); NEUTROPHIL% 74.8 % (40-75); PLATELET COUNT 250 X10e3 (140-420); RED BLOOD COUNT 2.87 X10e (3.90-5.30); RED CELL DISTRIBUTION WIDTH 20.4 % (11.0-15.5); WHITE BLOOD COUNT 3.6 X10e3 (4.0-10.5)
[2017-01-20 19:07] LABS: DIFF IND YES; HEMOGLOBIN 4.4 gm/dL (12.0-16.0)
[2017-01-20 19:25] LABS: GLOM FILT RATE Estimated 62.1 mL/min (>60)
[~2017-01-20 19:39] MED LIST: KETOPROFEN PO; PAXIL PO; PEN-VEE K PO; VOLTAREN5 ML OP; WELLBUTRIN PO
[2017-01-20 19:44] LABS: OVALOCYTES PRESENT; POIKILOCYTOSIS MOD; TEAR DROP CELLS PRESENT
[2017-01-20 19:46] LABS: PLATELET ESTIMATE NORMAL (NORMAL)
[2017-01-20 20:09] LABS: INR 1.1; PARTIAL THROMBOPLASTIN TIME 25.9 SECONDS (23.5-31.3); PROTHROMBIN TIME (PATIENT) 11.7 SECONDS (9.6-11.5)
[2017-01-20 20:25] LABS: ALBUMIN SERUM 3.4 g/dL (3.5-5.0); BILIRUBIN, DIRECT 0.1 mg/dL (0.0-0.2); BILIRUBIN,INDIRECT 0.2 mg/dL (0.0-0.9); BILIRUBIN,TOTAL 0.3 mg/dL (0.2-2.0)
[2017-01-20 20:43] LABS: URINE SOURCE CLEAN CATCH
[2017-01-20 20:52] LABS: URINE APPEARANCE CLEAR; URINE BILIRUBIN NEG (NEG); URINE BLOOD NEG (NEG); URINE COLOR YELLOW; URINE GLUCOSE NEG (NEG); URINE KETONE NEG (NEG); URINE LEUKOCYTE ESTERASE NEG (NEG); URINE NITRATE NEG (NEG); URINE PROTEIN NEG (NEG); URINE SPECIFIC GRAVITY 1.013 (1.003-1.035); URINE UROBILINOGEN 0.2 MG/DL (NEG)
[2017-01-20 20:56] LABS: CULTURE INDICATED? NO
[2017-01-20 22:06] LABS: INFLUENZA A NEG (NEG); INFLUENZA B POS (NEG)
[2017-01-21 08:50] LABS: HEMATOCRIT 21.6 % (35.0-45.0); MEAN CORPUSCULAR HGB CONC 28.9 g/dL (30-36); MEAN PLATELET VOLUME 9.1 FL (6.5-11.5); RED BLOOD COUNT 3.46 X10e (3.90-5.30); RED CELL DISTRIBUTION WIDTH 27.8 % (11.0-15.5); WHITE BLOOD COUNT 3.5 X10e3 (4.0-10.5)
[2017-01-21 08:54] LABS: HEMOGLOBIN 6.2 gm/dL (12.0-16.0); MEAN CELL VOLUME 62.5 FL (83-96)
[2017-01-21 09:21] LABS: BUN/CREATININE RATIO 14.44; CALCIUM SERUM 7.9 mg/dL (8.4-10.2); CREATININE SERUM 0.9 mg/dL (0.6-1.4); GLOM FILT RATE Estimated 70.5 mL/min (>60); MAGNESIUM 1.7 mg/dL (1.6-3.0); POTASSIUM 3.6 mmol/L (3.5-5.1)
[2017-01-21 09:43] LABS: FOLATE (FOLIC ACID) 18.7 ng/mL (>5.8)
[2017-01-22 09:14] LABS: HEMATOCRIT 28.8 % (35.0-45.0); MEAN CORPUSCULAR HEMOGLOBIN 19.9 PG (28-34); MEAN CORPUSCULAR HGB CONC 29.4 g/dL (30-36); MEAN PLATELET VOLUME 8.8 FL (6.5-11.5); RED BLOOD COUNT 4.25 X10e (3.90-5.30); RED CELL DISTRIBUTION WIDTH 32.7 % (11.0-15.5); WHITE BLOOD COUNT 5.3 X10e3 (4.0-10.5)
[2017-01-22 09:15] LABS: HEMOGLOBIN 8.5 gm/dL (12.0-16.0); MEAN CELL VOLUME 67.7 FL (83-96)
[2017-01-22 09:33] LABS: BUN/CREATININE RATIO 21.25; CALCIUM SERUM 7.9 mg/dL (8.4-10.2); CREATININE SERUM 0.8 mg/dL (0.6-1.4); GLOM FILT RATE Estimated 81.3 mL/min (>60); MAGNESIUM 1.8 mg/dL (1.6-3.0); POTASSIUM 3.7 mmol/L (3.5-5.1)
[2017-01-23 06:26] LABS: HEMATOCRIT 25.6 % (35.0-45.0); HEMOGLOBIN 7.7 gm/dL (12.0-16.0); MEAN CELL VOLUME 68.7 FL (83-96); MEAN CORPUSCULAR HEMOGLOBIN 20.6 PG (28-34); MEAN PLATELET VOLUME 8.9 FL (6.5-11.5); RED BLOOD COUNT 3.72 X10e (3.90-5.30); WHITE BLOOD COUNT 4.7 X10e3 (4.0-10.5)
[2017-01-23 07:25] LABS: BUN/CREATININE RATIO 12.22; CREATININE SERUM 0.9 mg/dL (0.6-1.4); GLOM FILT RATE Estimated 70.5 mL/min (>60); POTASSIUM 3.1 mmol/L (3.5-5.1)
[2017-01-24 10:50] LABS: ALBUMIN SERUM 3.4 g/dL (3.5-5.0); BUN/CREATININE RATIO 8.75; CALCIUM SERUM 8.4 mg/dL (8.4-10.2); CREATININE SERUM 0.8 mg/dL (0.6-1.4); GLOM FILT RATE Estimated 81.3 mL/min (>60); POTASSIUM 3.7 mmol/L (3.5-5.1); PROTEIN TOTAL SERUM 5.8 g/dL (6.0-8.3)
[2017-01-24 11:06] LABS: HEMATOCRIT 33.3 % (35.0-45.0); MEAN CORPUSCULAR HEMOGLOBIN 23.9 PG (28-34); MEAN CORPUSCULAR HGB CONC 31.3 g/dL (30-36); MEAN PLATELET VOLUME 9.1 FL (6.5-11.5); RED BLOOD COUNT 4.38 X10e (3.90-5.30); RED CELL DISTRIBUTION WIDTH 32.4 % (11.0-15.5); WHITE BLOOD COUNT 5.7 X10e3 (4.0-10.5)
[2017-01-24 11:13] LABS: HEMOGLOBIN 10.4 gm/dL (12.0-16.0); MEAN CELL VOLUME 76.2 FL (83-96)
[2017-01-25 06:08] LABS: HEMATOCRIT 29.7 % (35.0-45.0); HEMOGLOBIN 9.3 gm/dL (12.0-16.0); MEAN CORPUSCULAR HEMOGLOBIN 22.2 PG (28-34); MEAN CORPUSCULAR HGB CONC 31.3 g/dL (30-36); MEAN PLATELET VOLUME 8.8 FL (6.5-11.5); RED BLOOD COUNT 4.18 X10e (3.90-5.30); RED CELL DISTRIBUTION WIDTH 33.3 % (11.0-15.5); WHITE BLOOD COUNT 4.5 X10e3 (4.0-10.5)
[2017-01-25 06:56] LABS: BUN/CREATININE RATIO 7.14; CALCIUM SERUM 8.1 mg/dL (8.4-10.2); CREATININE SERUM 0.7 mg/dL (0.6-1.4); GLOM FILT RATE Estimated 95.5 mL/min (>60)
[2017-01-26 05:47] LABS: HEMATOCRIT 28.5 % (35.0-45.0); HEMOGLOBIN 8.9 gm/dL (12.0-16.0); MEAN CELL VOLUME 72.5 FL (83-96); MEAN CORPUSCULAR HEMOGLOBIN 22.6 PG (28-34); MEAN CORPUSCULAR HGB CONC 31.1 g/dL (30-36); MEAN PLATELET VOLUME 8.8 FL (6.5-11.5); RED BLOOD COUNT 3.93 X10e (3.90-5.30); RED CELL DISTRIBUTION WIDTH 33.4 % (11.0-15.5)
[2017-01-26 06:30] LABS: BUN/CREATININE RATIO 7.14; CALCIUM SERUM 7.8 mg/dL (8.4-10.2); CREATININE SERUM 0.7 mg/dL (0.6-1.4); GLOM FILT RATE Estimated 95.5 mL/min (>60); MAGNESIUM 1.8 mg/dL (1.6-3.0); POTASSIUM 4.2 mmol/L (3.5-5.1)
[2017-01-27 05:58] LABS: HEMATOCRIT 29.5 % (35.0-45.0); HEMOGLOBIN 9.1 gm/dL (12.0-16.0); MEAN CELL VOLUME 72.9 FL (83-96); MEAN CORPUSCULAR HEMOGLOBIN 22.4 PG (28-34); MEAN CORPUSCULAR HGB CONC 30.8 g/dL (30-36); MEAN PLATELET VOLUME 9.4 FL (6.5-11.5); RED BLOOD COUNT 4.05 X10e (3.90-5.30); RED CELL DISTRIBUTION WIDTH 33.9 % (11.0-15.5); WHITE BLOOD COUNT 9.3 X10e3 (4.0-10.5)
[2017-01-27 06:27] LABS: BUN/CREATININE RATIO 8.57; CALCIUM SERUM 8.3 mg/dL (8.4-10.2); CREATININE SERUM 0.7 mg/dL (0.6-1.4); GLOM FILT RATE Estimated 95.5 mL/min (>60); MAGNESIUM 1.6 mg/dL (1.6-3.0); PHOSPHOROUS 1.9 mg/dL (2.5-4.6); POTASSIUM 3.7 mmol/L (3.5-5.1)
[2017-01-28 06:12] LABS: HEMOGLOBIN 8.9 gm/dL (12.0-16.0); MEAN CELL VOLUME 72.3 FL (83-96); MEAN CORPUSCULAR HEMOGLOBIN 22.1 PG (28-34); MEAN CORPUSCULAR HGB CONC 30.6 g/dL (30-36); MEAN PLATELET VOLUME 9.1 FL (6.5-11.5); RED BLOOD COUNT 4.01 X10e (3.90-5.30); RED CELL DISTRIBUTION WIDTH 34.5 % (11.0-15.5); WHITE BLOOD COUNT 7.3 X10e3 (4.0-10.5)
[2017-01-28 07:06] LABS: CALCIUM SERUM 8.4 mg/dL (8.4-10.2); CREATININE SERUM 0.7 mg/dL (0.6-1.4); GLOM FILT RATE Estimated 95.5 mL/min (>60); MAGNESIUM 1.7 mg/dL (1.6-3.0); POTASSIUM 3.6 mmol/L (3.5-5.1)
[2017-01-29] MEDS ORDERED: APAP325 M1 PO (10:11)
[2017-01-29] MEDS ORDERED: MIRAPEX1 MG PO (10:14)
[2017-01-29] MEDS ORDERED: INDERAL LA60 M1 PO (10:18)
[2017-01-29] MEDS ORDERED: ALPRAZOLAM0.5 MG PO (10:18)
[2017-01-29] MEDS ORDERED: VICODIN ES 7.51 EAC1 PO (10:21)
[2017-01-29] MEDS ORDERED: PANTOPRAZOLE SO20 MG PO (10:22)
[2017-01-29] MEDS ORDERED: CYANOCOBAL1000 MCG/1 INJ (10:24)
[2017-01-29] MEDS ORDERED: IRON325 MG PO (10:27)
[2017-02-23] MEDS ORDERED: FLAGYL250 M1 PO (11:02)
[2017-02-23] MEDS ORDERED: FERROUS GLUCON324 M1 PO (11:02)
== END 2017-01-29 11:51 | disposition home or self-care (01) | DRG 329 ==
LOC: CED 19:39 → CEDOF 20:15 → C3A PCU 22:42
PROVIDERS: Emergency Medicine; Family Medicine; Internal Medicine; Internal Medicine Cardiovascular Disease; Internal Medicine Gastroenterology; Specialist
PROC: 30233N1 Transfusion of Nonautologous Red Blood Cells into Peripheral Vein, Percutaneous Approach (ICD-10-PCS; 2017-01-20)
PROC: 0DJ08ZZ Inspection of Upper Intestinal Tract, Via Natural or Artificial Opening Endoscopic (ICD-10-PCS; 2017-01-21)
PROC: 0DBK8ZX Excision of Ascending Colon, Via Natural or Artificial Opening Endoscopic, Diagnostic (ICD-10-PCS; 2017-01-23 15:39)
PROC: 0DBL8ZX Excision of Transverse Colon, Via Natural or Artificial Opening Endoscopic, Diagnostic (ICD-10-PCS; 2017-01-23 15:39)
PROC: 0D5L8ZZ Destruction of Transverse Colon, Via Natural or Artificial Opening Endoscopic (ICD-10-PCS; 2017-01-23 15:39)
PROC: B24BYZZ Ultrasonography of Heart with Aorta using Other Contrast (ICD-10-PCS; 2017-01-24)
PROC: 02HV33Z Insertion of Infusion Device into Superior Vena Cava, Percutaneous Approach (ICD-10-PCS; 2017-01-24)
PROC: B548ZZA Ultrasonography of Superior Vena Cava, Guidance (ICD-10-PCS; 2017-01-24)
PROC: 0DTK0ZZ Resection of Ascending Colon, Open Approach (ICD-10-PCS; principal; 2017-01-25 11:00)
DX: C18.2 Malignant neoplasm of ascending colon (principal); A41.89 Other specified sepsis; K56.69 Other intestinal obstruction; Z68.41 Body mass index [BMI] 40.0-44.9, adult; E44.1 Mild protein-calorie malnutrition; K22.2 Esophageal obstruction; E66.9 Obesity, unspecified; D50.9 Iron deficiency anemia, unspecified; K57.30 Diverticulosis of large intestine without perforation or abscess without bleeding; D12.3 Benign neoplasm of transverse colon; F41.1 Generalized anxiety disorder; G25.0 Essential tremor; E53.8 Deficiency of other specified B group vitamins; Z91.19 Patient's noncompliance with other medical treatment and regimen; K58.9 Irritable bowel syndrome, unspecified; E78.5 Hyperlipidemia, unspecified; Z87.891 Personal history of nicotine dependence; F32.9 Major depressive disorder, single episode, unspecified; F43.10 Post-traumatic stress disorder, unspecified; Z85.41 Personal history of malignant neoplasm of cervix uteri; K27.9 Peptic ulcer, site unspecified, unspecified as acute or chronic, without hemorrhage or perforation; E87.6 Hypokalemia; J10.1 Influenza due to other identified influenza virus with other respiratory manifestations; F41.9 Anxiety disorder, unspecified; D64.9 Anemia, unspecified
CPT/HCPCS: 71010; 71250; 74177; 76937; 77001; 78452; 80048; 80053; 80076; 81003; 82274; 82378; 82607; 82728; 82746; 82947; 83516; 83540; 83550; 83735; 84100; 84443; 85025; 85027; 85610; 85730; 86850; 86900; 86901; 86923; 87804; 87880; 88305; 88309; 93005; 93017; 93306; 93971; 94760; 94762; 96372; 97161; 99285; A9500; C1751; C9113; J0131; J0330; J0561; J0696; J1100; J1170; J1650; J1885; J1940; J1956; J2250; J2270; J2405; J2710; J2765; J2785; J2916; J3010; J3420; J3475; P9016; Q9967; Q9968

== ENCOUNTER → 2017-02-23 | Outpatient (CLI) | payer OTHER ==
[~2017-02-23] MED LIST changes: +ALPRAZOLAM0.5 MG PO; +APAP325 M1 PO; +CYANOCOBAL1000 MCG/1 INJ; +FERROUS GLUCON324 M1 PO; +FLAGYL250 M1 PO; +INDERAL LA60 M1 PO; +IRON325 MG PO; +MIRAPEX1 MG PO; +PANTOPRAZOLE SO20 MG PO; +VICODIN ES 7.51 EAC1 PO
[2017-02-23 11:34] LABS: HEMATOCRIT 38.2 % (35.0-45.0); HEMOGLOBIN 12.1 gm/dL (12.0-16.0); MEAN CELL VOLUME 81.2 FL (83-96); MEAN CORPUSCULAR HEMOGLOBIN 25.8 PG (28-34); MEAN CORPUSCULAR HGB CONC 31.8 g/dL (30-36); MEAN PLATELET VOLUME 9.7 FL (6.5-11.5); RED BLOOD COUNT 4.7 X10e (3.90-5.30); RED CELL DISTRIBUTION WIDTH 27.6 % (11.0-15.5); WHITE BLOOD COUNT 6.2 X10e3 (4.0-10.5)
[2017-02-23 11:46] LABS: PROTHROMBIN TIME (PATIENT) 10.6 SECONDS (9.6-11.5)
[2017-02-23 12:11] LABS: BUN/CREATININE RATIO 15.71; CALCIUM SERUM 8.9 mg/dL (8.4-10.2); CREATININE SERUM 0.7 mg/dL (0.6-1.4); GLOM FILT RATE Estimated 95.5 mL/min (>60); POTASSIUM 3.7 mmol/L (3.5-5.1)
== END | disposition home or self-care (01) ==
LOC: CAMB 10:26 → EDSTATUS 12:00 → CAMB 12:00
PROVIDERS: Specialist
DX: Z01.812 Encounter for preprocedural laboratory examination (principal); C18.9 Malignant neoplasm of colon, unspecified
CPT/HCPCS: 36415; 80048; 85027; 85610; 85730

== ENCOUNTER → 2017-03-07 | Day surgery (SDC) | payer OTHER ==
--- NOTE | ~2017-03-07 | OR ---
Unit #: [id number] #: [id number] Patient: IVAN PACHECO L [id number] [facility]. [place], [place] [address] [id number] O MR#: [id number] NAME: IVAN PACHECO ROOM: Date of Procedure: 03/07/2017 Admission Date: 03/07/2017 Surgeon: Harry Mason M.D. : 1960 Attending Physician: Harry Mason M.D. [facility] OPER[facility]IVE REPORT PREOPERATIVE DIAGNOSIS Metastatic colon cancer. POSTOPERATIVE DIAGNOSIS Metastatic colon cancer. PROCEDURE PERFORMED Right subclavian vein MediPort placement. ANESTHESIA General endotracheal anesthesia. ESTIMATED BLOOD LOSS 30 mL. INDICATIONS FOR PROCEDURE A 56-year-old female, who has metastatic colon cancer. She is to undergo chemotherapy and a MediPort has been requested. Due to her anxiety level, she requested general anesthesia for the procedure. DESCRIPTION OF PROCEDURE The patient was admitted to [facility], positively identified, and transported to the operating room, and after induction of general endotracheal anesthesia, she received IV antibiotics per SCIP protocol, was appropriately positioned, placed in Trendelenburg position and prepped and draped in usual sterile fashion. Introducer needle was passed in the subclavian vein with a single stick. We had excellent free flow of dark blood that was nonpulsatile. Guidewire was easily passed and under fluoroscopic control, it was positioned in the superior vena cava. An incision made and subdermal pocket was created, then the guidewire was brought into the incision. Dilator and sheaths were passed over the guidewire into the subclavian vein and then the catheter was positioned in the superior vena cava under fluoroscopic control. The sheath was removed and then the Silastic catheter was attached to the MediPort using the locking device. The MediPort was secured in the subdermal pocket. It easily aspirated and flushed. The port was secured with 3-0 silk suture and the skin was closed with 4-0 Monocryl running subcuticular closure and Dermabond skin adhesive. Sponges and needle counts were correct x3. The patient tolerated the procedure well and transported to recovery in stable condition. Chest x-ray is pending in recovery for permanent documentation of line placement. Unit #: [id number] #: [id number] Patient: IVAN PCAHECO Dictated by... Beka Mi/aixa TD: 03/07/2017 23:45 JOB #: [id number] OPERATIVE REPORT Page 1 of 1 X Harry Mason MD PROCEDURE OPERATIVE NOTE
--- NOTE | ~2017-03-07 | CR71 ---
[facility] A Service of [facility] & [facility] RADIOLOGY TEXT RESULTS PATIENT: IVAN PACHECO LOCATION: [facility] : 56 UNIT #: [id number] AGE: [address]: Harry Mason MD SEX: F ORDER DR: [id number] [facility] [address] [place], [place] [address] [id number] O MR#: [id number] Acc #: [id number] NAME: IVAN PACHECO : 1960 SEX: F STUDY DATE/TIME: 03/07/2017 16:03 UNIT: [facility] ROOM: STUDY DESCRIPTION: CR Chest Single View Attending Physician: Harry Mason M.D. Ordering Physician: Harry Mason M.D. [facility] Care [facility]AG[facility] REPORT This report is preliminary unless electronic signature is present EXAM Intraoperative fluoroscopic image, 03/07/2017. HISTORY Chest port placement. Fluoroscopy time 1 minute. 1 fluoroscopic spot image. FINDINGS Single fluoroscopic spot image shows right side chest port with catheter extending through right subclavian vein terminating in superior vena cava. There is no pneumothorax seen. Please see operative report for full details. Dictated by... Nav Barakat M.D. THIS IS AN ELECTRONICALLY VERIFIED REPORT Nav Barakat M.D. at 03/08/2017 10:27 PM DON/fidel TD: 03/08/2017 01:22 JOB #: [id number] MEDICAL IMAGING REPORT Page 1 of 1 COPY
--- NOTE | ~2017-03-07 | CR71 ---
[facility] A Service of [facility] & [facility] RADIOLOGY TEXT RESULTS PATIENT: IVAN PACHECO LOCATION: [facility] : 56 UNIT #: [id number] AGE: [address]: Harry Mason MD SEX: F ORDER DR: [id number] [facility] [address] [place], [place] [address] [id number] O MR#: [id number] Acc #: [id number] NAME: IVAN PACHECO : 1960 SEX: F STUDY DATE/TIME: 03/07/2017 16:53 UNIT: [facility] ROOM: STUDY DESCRIPTION: CR Chest Single View Attending Physician: Harry Mason M.D. Ordering Physician: Harry Mason M.D. Primary Care Physician: [facility] MEDICAL IMAGING REPORT This report is preliminary unless electronic signature is present EXAM Single view chest HISTORY Port placement PACU today, no injury COMPARISON STUDIES 01/20/17 FINDINGS AP radiograph of the chest is presented. Interval placement of right sided chest port with catheter extending through right subclavian vein and terminating in the superior vena cava. Mild cardiac enlargement. The lungs are well inflated. There is no evidence of acute pulmonary disease. No pleural effusion or pneumothorax. No suspicious nodule. Dictated by... Nav Barakat M.D. THIS IS AN ELECTRONICALLY VERIFIED REPORT Nav Barakat M.D. at 03/08/2017 10:25 PM Robina TD: 03/07/2017 23:17 JOB #: [id number] MEDICAL IMAGING REPORT Page 1 of 1 COPY
== END | disposition home or self-care (01) ==
LOC: CSUR 03-02 10:30
PROVIDERS: Specialist
PROC: 05H533Z Insertion of Infusion Device into Right Subclavian Vein, Percutaneous Approach (ICD-10-PCS; principal; 2017-03-07 14:30)
DX: C18.9 Malignant neoplasm of colon, unspecified (principal); Z45.2 Encounter for adjustment and management of vascular access device; C77.2 Secondary and unspecified malignant neoplasm of intra-abdominal lymph nodes; K58.9 Irritable bowel syndrome, unspecified; I51.7 Cardiomegaly; F41.9 Anxiety disorder, unspecified; I10 Essential (primary) hypertension; Z79.899 Other long term (current) drug therapy; Z79.891 Long term (current) use of opiate analgesic; Z98.51 Tubal ligation status; Z90.49 Acquired absence of other specified parts of digestive tract; Z98.890 Other specified postprocedural states
CPT/HCPCS: 71010; 76000; C1788; J0690; J1100; J1644; J1885; J2250; J2765; J3010

== ENCOUNTER 2017-05-05 05:23 | Emergency (ER) | payer OTHER ==
[2017-05-05 07:12] LABS: BASOPHIL% 0.3 % (0-2.5); EOSINOPHIL# 0.1 X10e3 (0-0.7); EOSINOPHIL% 2.3 % (0.0-7.0); HEMATOCRIT 40.3 % (35.0-45.0); HEMOGLOBIN 13.3 gm/dL (12.0-16.0); LYMPHOCYTE# 1.5 X10e3 (1.0-3.5); MEAN CELL VOLUME 85.6 FL (83-96); MEAN CORPUSCULAR HEMOGLOBIN 28.2 PG (28-34); MEAN PLATELET VOLUME 9.2 FL (6.5-11.5); MONOCYTE# 0.5 X10e3 (0-1.0); MONOCYTE% 11.8 % (3.0-12.0); NEUTROPHIL# 2.3 X10e3 (1.5-7.1); NEUTROPHIL% 52.6 % (40-75); PLATELET COUNT 132 X10e3 (140-420); RED BLOOD COUNT 4.71 X10e (3.90-5.30); RED CELL DISTRIBUTION WIDTH 15.5 % (11.0-15.5); WHITE BLOOD COUNT 4.4 X10e3 (4.0-10.5)
[2017-05-05 07:16] LABS: DIFF IND NO
[2017-05-05 07:26] LABS: INR 1.1; PROTHROMBIN TIME (PATIENT) 11.4 SECONDS (10.0-11.7)
[2017-05-05 07:45] LABS: CALCIUM SERUM 8.8 mg/dL (8.4-10.2); CREATININE SERUM 0.8 mg/dL (0.6-1.4); GLOM FILT RATE Estimated 81.3 mL/min (>60); POTASSIUM 3.2 mmol/L (3.5-5.1)
== END 2017-05-05 08:10 | disposition home or self-care (01) ==
LOC: CED 05:23
PROVIDERS: Emergency Medicine
DX: L50.9 Urticaria, unspecified (principal); I10 Essential (primary) hypertension; Z79.899 Other long term (current) drug therapy
CPT/HCPCS: 36415; 80048; 85025; 85610; 85730; 96372; 99283; J2930